=== PATIENT | female | born 1985 ===

== ENCOUNTER → 2018-03-25 | Outpatient (CLI) | payer OTHER ==
[~2018-03-25] MED LIST: MULVITMINE PO; OXYACE5T PO; ZOLP10 PO
== END ==
LOC: LAB SHORT 11:29 → LAB 11:29
PROVIDERS: Registered Nurse Community Health
DX: Z12.4 Encounter for screening for malignant neoplasm of cervix (principal)
CPT/HCPCS: 87624; G0123